=== PATIENT | female | born 1960 | race Caucasian/White ===

== ENCOUNTER → 2024-07-15 | Outpatient (CLI) | payer BC ==
[~2024-07-15] MED LIST: IOHEXOL-350 50ML VIAL IV ONE
--- NOTE | 2024-07-15 15:15 | HMCIMG ---
CT CHEST W/WO CONTRAST REASON: Abnormal findings on diagnostic imaging of lung COMPARISON: None. TECHNIQUE: Images are obtained from thoracic inlet through the lung bases before and after IV contrast, 50 cc Omnipaque 350. TECHNIQUE: Multiple sequential axial images of the chest were obtained from the thoracic inlet through the upper pole of the kidneys without intravenous contrast administration. FINDINGS: Lungs are clear. There are no focal masses or infiltrates. There aren't normal-appearing pulmonary interstitial markings. There is no pleural effusion. Contrast outlines normal hilar and mediastinal structures. Heart size is normal with no vascular congestion. Chest wall appears normal. Visualized upper abdominal structures are unremarkable as well. IMPRESSION: 1. Negative pre and post contrast CT chest. CT was performed with one or more following dose reduction techniques: automated exposure control, adjustment of the mA and kv according to patient's size, or use of a iterative reconstruction technique.
== END | disposition home or self-care (01) ==
LOC: RAH 12:54
PROVIDERS: ATTEND Internal Medicine Cardiovascular Disease
DX: R91.1 Solitary pulmonary nodule (principal)
CPT/HCPCS: 71270; Q9967